=== PATIENT | female | born 1970 | race Caucasian/White ===

== ENCOUNTER → 2017-07-13 | Outpatient (CLI) | payer MEDICAID | LOC: FIMAGING 10:53 | PROVIDERS: ATTEND Obstetrics & Gynecology | DX: Z12.31 Encounter for screening mammogram for malignant neoplasm of breast (principal) | CPT/HCPCS: G0202 ==

== ENCOUNTER 2018-03-04 17:11 | Emergency (ER) | payer MEDICAID ==
[2018-03-04 17:33] VITALS: BP 121/81
--- NOTE | 2018-03-04 17:46 | EDPHY ---
General - History Smoking Status: Former smoker Time Seen by Provider: 03/04/18 17:42 Narrative: CHIEF COMPLAINT: Ft pain HISTORY OF PRESENT ILLNESS: Patient complains of right foot pain that started this morning while running. She was running and looked 1 direction when she felt her right ankle inverted. She felt a sudden onset of pain in the lateral part of the right midfoot. No ankle pain. She said she was able to walk for few minutes and then continued to run. She was doing fine until 1 hr ago, when the pain returned. Moderate to severe pain. Located only the dorsum of the right foot up into below the lateral malleolus but not including the lateral malleolus. No pain in the tubbs or knee. Able to bear weight but very painful to do so. No fall or head strike. No other associated complaints or modifying factors DOMINANT EXTREMITY: Right-hand dominant ESTABLISHED ORTHOPEDIST: No orthopedist REVIEW OF SYSTEMS: Ten systems reviewed and are negative unless otherwise noted in the HPI PAST MEDICAL HISTORY: Uncomplicated PAST SURGICAL HISTORY: Hysterectomy without oophorectomy SOCIAL HISTORY: Nonsmoker. No drug or alcohol use. Lives and works for independently FAMILY HISTORY: Noncontributory EXAMINATION General Appearance: Alert, no distress Cardiovascular: DP and PT pulses are 2+ on the right lower extremity. There is brisk cap refill in the right foot. Neurological: A&O, sensory symmetric, strength is symmetric at the great toes in the ankles. No footdrop Skin: Warm and dry, no rash. No petechiae or purpura. No ecchymosis. No laceration or puncture Extremities: Tenderness of the right midfoot and the proximal metatarsals on the right foot. There is no tenderness of the right ankle or calcaneus with from palpation. Range of motion of the ankle is intact but painful with active range of motion of the right foot. Psychiatric: Mood and affect normal DIFFERENTIAL DIAGNOSES: Including but not limited to ft sprain, metatarsal fracture, subluxation, stress fracture, metatarsalgia MDM: 5:45 p.m. Acute right foot pain with likely sprain. Do not appreciate any deformity or obvious bony abnormalities. X-ray of the foot has been ordered. She has no acute distress, neurovascular intact. she took Advil 2 hr ago. X-ray is pending. 6:30 p.m. X-ray as read by me reveals no acute findings. Patient re-evaluated. She is resting comfortably with minimal pain at this time. She says the pain continues to come and go. I will treat her with a postoperative shoe and provide crutches as needed. She is weight-bearing as tolerated. Ice and elevation often. Ibuprofen or Aleve [id number]. Follow up with Orthopedics as we have provided for her. She is comfortable this plan and discharged home stable condition. SUPERVISION: This patient was independently evaluated without direct involvement of or examination by the attending physician. ED Precautions: Worsening pain. Erythema, edema, cyanosis, pallor, paresthesia or anesthesia. (Camron Gonzales) Medical Decision Making: PHYSICIAN DOCUMENTATION: The patient was evaluated and managed by the Physician Junior Art Director. My co- signature indicates that I have reviewed this chart and I agree with the findings and plan of care as documented. I am the secondary supervising physician. (Damian Sullivan) - Diagnostics Imaging Results: Imaging Impressions Foot X-Ray 03/04/18 17:44 Impression: Negative for fracture. - Objective Vital Signs: Initial Vital Signs Temperature (C) 98.4 F 03/04/18 17:32 Heart Rate 90 03/04/18 17:32 Respiratory Rate 17 03/04/18 17:32 Blood Pressure 121/81 H 03/04/18 17:32 O2 Sat (%) 98 03/04/18 17:32 O2 Delivery Mode Room Air Allergies/Adverse Reactions: No Allergies [NKDA] Allergy (Verified 03/04/18 17:30) Home Medications: Medication Instructions Recorded NK [No Known Home Meds] 03/04/18 Departure - Departure Disposition: Home, Routine, Self-Care Clinical Impression: Metatarsalgia of right foot Foot sprain Qualifiers: Encounter type: initial encounter Laterality: right Qualified Code(s): S93.601A - Unspecified sprain of right foot, initial encounter Condition: Good Instructions: Foot Sprain (ED), Arthralgia (ED) Additional Instructions: 1. Postop shoe and crutches as needed. You are weight-bearing as tolerated 2. Ice and elevate as needed 3. Ibuprofen 600 mg every 6-8 hours as needed for pain and swelling 4. Contact the orthopedist for definitive care. I provided information for you today. Referrals: Fabiola Hurtado MD [Medical Doctor] - As per Instructions
== END 2018-03-04 18:57 | disposition home or self-care (01) ==
DX: S93.601A Unspecified sprain of right foot, initial encounter (principal); Z87.891 Personal history of nicotine dependence; X58.XXXA Exposure to other specified factors, initial encounter; Y99.8 Other external cause status; Y93.02 Activity, running
CPT/HCPCS: L4386

== ENCOUNTER → 2018-09-08 | Outpatient (CLI) | payer MEDICAID | LOC: FIMAGING 11:07 | PROVIDERS: ATTEND Obstetrics & Gynecology | DX: Z12.31 Encounter for screening mammogram for malignant neoplasm of breast (principal) ==

== ENCOUNTER → 2019-02-24 | Outpatient (CLI) | payer MEDICAID | LOC: FIMAGING 09:23 | PROVIDERS: ATTEND Physician Assistant Medical | DX: M50.322 Other cervical disc degeneration at C5-C6 level (principal) ==